=== PATIENT | female | born 1970 | race African-American/Black ===

== ENCOUNTER 2016-10-06 22:04 | Emergency (ER) | payer MEDICAID ==
[2016-10-06 23:11] LABS: APPEARANCE CLOUDY (CLEAR); BACTERIA FEW /hpf (NONE SEEN); BILIRUBIN NEGATIVE (NEGATIVE); COLOR YELLOW (YELLOW); EPITHELIAL CELLS 0-5 /hpf (0-5); GLUCOSE NEGATIVE (NEGATIVE); KETONE NEGATIVE (NEGATIVE); LEUKOCYTE ESTERASE 2+ (NEGATIVE); NITRITE NEGATIVE (NEGATIVE); PROTEIN NEGATIVE (NEGATIVE); RED CELLS - URINE NONE SEEN /hpf (0-5); SPECIFIC GRAVITY 1.015 (1.005-1.020); UROBILINOGEN NORMAL (NORMAL)
== END 2016-10-06 23:52 | disposition home or self-care (01) ==
LOC: D.ER 22:04
PROVIDERS: Family Medicine
DX: J01.90 Acute sinusitis, unspecified (principal); N39.0 Urinary tract infection, site not specified

== ENCOUNTER 2016-10-24 22:27 | Emergency (ER) | payer MEDICAID | END 2016-10-25 01:30 | disposition home or self-care (01) | LOC: D.ER 22:27 | DX: H92.01 Otalgia, right ear (principal); J01.90 Acute sinusitis, unspecified; J02.9 Acute pharyngitis, unspecified; R05 Cough; R51 Headache; R09.89 Other specified symptoms and signs involving the circulatory and respiratory systems; R09.82 Postnasal drip ==

== ENCOUNTER 2016-12-06 08:03 | Emergency (ER) | payer MEDICAID ==
[2016-12-06 08:49] LABS: BASOPHILS 0.3 % (0-2); EOSINOPHILS 0.5 % (0-7); HEMATOCRIT 36.7 % (36.0-48.0); HEMOGLOBIN 12.4 g/dL (12-16); IMMATURE GRANULOCYTES 0.1 % (0-5); LYMPHOCYTES 23.5 % (15-50); MCH 29.3 pg (26.0-34.0); MCHC 33.8 g/dL (31.0-37.0); MCV 86.8 fL (80.0-100.0); MEAN PLATELET VOLUME 10.2 fL (7.4-10.4); MONOCYTES 5.1 % (2-11); NEUTROPHILS 70.5 % (40-80); PLATELET COUNT 275 10x3/uL (130-400); RBC 4.23 10x6/uL (4.00-5.40); WBC 7.4 10x3/uL (4.8-10.8)
[2016-12-06 08:56] LABS: APPEARANCE CLEAR (CLEAR); BACTERIA MODERATE /hpf (NONE SEEN); BILIRUBIN NEGATIVE (NEGATIVE); COLOR YELLOW (YELLOW); EPITHELIAL CELLS 0-5 /hpf (0-5); GLUCOSE NEGATIVE (NEGATIVE); KETONE NEGATIVE (NEGATIVE); LEUKOCYTE ESTERASE TRACE (NEGATIVE); MUCUS <1+ /lpf (NONE SEEN); NITRITE NEGATIVE (NEGATIVE); PROTEIN NEGATIVE (NEGATIVE); SPECIFIC GRAVITY 1.015 (1.005-1.020); UROBILINOGEN NORMAL (NORMAL); WHITE CELLS - URINE 0-5 /hpf (0-5)
[2016-12-06 09:10] LABS: HCG SERUM NEGATIVE (NEGATIVE)
[2016-12-07 22:07] LABS: CHLAMYDIA TRACHOMATIS, NAA Negative (Negative)
== END 2016-12-06 11:16 | disposition home or self-care (01) ==
LOC: D.ER 08:03
PROVIDERS: Emergency Medicine
DX: B37.3 Candidiasis of vulva and vagina (principal); N73.0 Acute parametritis and pelvic cellulitis

== ENCOUNTER 2017-02-15 06:15 | Emergency (ER) | payer MEDICAID ==
[2017-02-15 06:57] LABS: BASOPHILS 0.1 % (0-2); EOSINOPHILS 2.8 % (0-7); HEMATOCRIT 38.1 % (36.0-48.0); HEMOGLOBIN 12.8 g/dL (12-16); IMMATURE GRANULOCYTES 0.1 % (0-5); LYMPHOCYTES 24.2 % (15-50); MCH 29.8 pg (26.0-34.0); MCHC 33.6 g/dL (31.0-37.0); MCV 88.6 fL (80.0-100.0); MEAN PLATELET VOLUME 9.7 fL (7.4-10.4); MONOCYTES 4.8 % (2-11); PLATELET COUNT 304 10x3/uL (130-400); RDW 12.8 % (11.5-14.5); WBC 6.8 10x3/uL (4.8-10.8)
[2017-02-15 07:06] LABS: HCG SERUM NEGATIVE (NEGATIVE)
[2017-02-15 07:50] LABS: APPEARANCE CLOUDY (CLEAR); BACTERIA MANY /hpf (NONE SEEN); BILIRUBIN NEGATIVE (NEGATIVE); COLOR YELLOW (YELLOW); GLUCOSE NEGATIVE (NEGATIVE); KETONE NEGATIVE (NEGATIVE); MUCUS <1+ /lpf (NONE SEEN); NITRITE NEGATIVE (NEGATIVE); PROTEIN NEGATIVE (NEGATIVE); RED CELLS - URINE RARE /hpf (0-5); SPECIFIC GRAVITY 1.015 (1.005-1.020); UROBILINOGEN NORMAL (NORMAL)
== END 2017-02-15 08:28 | disposition home or self-care (01) ==
LOC: D.ER 06:15
PROVIDERS: Emergency Medicine
DX: N73.9 Female pelvic inflammatory disease, unspecified (principal); R82.71 Bacteriuria

== ENCOUNTER 2018-02-22 08:22 | Emergency (ER) | payer MEDICAID ==
[~2018-02-22] VITALS: Ht 154.9 cm; Wt 70.5 kg
[2018-02-22 08:30] VITALS: Ht 154.9 cm; Wt 70.5 kg
[2018-02-22] MEDS ORDERED: HYDROCODON-ACE1 EAC7 PO (08:32)
[2018-02-22 09:05] LABS: BASOPHILS 0.3 % (0-2); EOSINOPHILS 0.8 % (0-7); HEMATOCRIT 36.3 % (36.0-48.0); HEMOGLOBIN 12.4 g/dL (12-16); IMMATURE GRANULOCYTES 0.1 % (0-5); LYMPHOCYTES 25.5 % (15-50); MCHC 34.2 g/dL (31.0-37.0); MCV 84.8 fL (80.0-100.0); MONOCYTES 5.2 % (2-11); NEUTROPHILS 68.1 % (40-80); PLATELET COUNT 331 10x3/uL (130-400); RBC 4.28 10x6/uL (4.00-5.40); RDW 13.1 % (11.5-14.5); WBC 7.6 10x3/uL (4.8-10.8)
[2018-02-22 09:12] LABS: HCG SERUM NEGATIVE (NEGATIVE)
[2018-02-22 09:17] LABS: ALBUMIN 3.7 g/dL (3.4-5.0); ALKALINE PHOSPHATASE 62 U/L (46-116); ALT (SGPT) 16 U/L (10-68); AMYLASE - SERUM 69 U/L (25-115); CALC OSMOLALITY 278 mosm/kg (275-300); CALCIUM 8.9 mg/dL (8.5-10.1); CARBON DIOXIDE 26.2 mmol/L (21.0-32.0); CHLORIDE - SERUM 103 mmol/L (98-107); CREATININE - SERUM 0.8 mg/dL (0.6-1.3); GLUCOSE 95 mg/dL (74-106); LIPASE 150 U/L (73-393); POTASSIUM - SERUM 3.9 mmol/L (3.5-5.1); PROTEIN - SERUM 8.1 g/dL (6.4-8.2); SODIUM 139 mmol/L (136-145); UREA NITROGEN 15 mg/dL (7-18); eGFR NON AFRICAN AMERICAN 82 mL/min (90-120)
[2018-02-22 09:25] LABS: APPEARANCE SL CLDY (CLEAR); BACTERIA MODERATE /hpf (NONE SEEN); BILIRUBIN NEGATIVE (NEGATIVE); COLOR YELLOW (YELLOW); EPITHELIAL CELLS 0-5 /hpf (0-5); GLUCOSE NEGATIVE (NEGATIVE); KETONE NEGATIVE (NEGATIVE); NITRITE NEGATIVE (NEGATIVE); PROTEIN NEGATIVE (NEGATIVE); RED CELLS - URINE RARE /hpf (0-5); SPECIFIC GRAVITY 1.015 (1.005-1.020); UROBILINOGEN NORMAL (NORMAL)
[2018-02-22 09:26] LABS: MUCUS <1+ /lpf (NONE SEEN)
[2018-02-22] MEDS ORDERED: FLAGYL500 MG PO (09:42)
[2018-02-22] MEDS ORDERED: CIPRO500 MG PO (09:42)
[2018-02-22 09:48] VITALS: BP 133/84
== END 2018-02-22 09:49 | disposition home or self-care (01) ==
LOC: D.ER 08:22
PROVIDERS: Family Medicine
DX: N39.0 Urinary tract infection, site not specified (principal); M94.0 Chondrocostal junction syndrome [Tietze]; A59.9 Trichomoniasis, unspecified